=== PATIENT | female | born 1970 | race Caucasian/White ===

== ENCOUNTER 2017-02-13 10:44 | Emergency (ER) | payer OTHER ==
--- NOTE | 2017-02-13 12:24 | UC ---
General HPI - HPI Summary HPI Summary: The patient comes in today for: 1. Diarrhea, worsening breathing, sinus pressure: Onset: Last week. Palliative/provocative: Laying down leads to coughing. Quality: Pressure Region: Sinuses Severity:810 Time: Constant. Associated symptoms: COPD/ASthma: present, but 50% worse, with her having shortness of breath with exertion she never had problems with before. Diarrhea: 5 days. Stools: 10-12 times a day. No blood mucous or pus. Some of the stools are "just a little bit." Urination is "good" with a light yellow. Vomiting: None for the last 3 days. Fevers: None today, but before she did. Previous treatment: She saw her regular provider and given Augmentin for bronchitis with Robitussin with Codeine. Her diarrhea started a day later. It has been about the same since. Rhinitis: None. Cough production: green. * - History of Current Complaint Chief Complaint: UCGeneralIllness Stated Complaint: NAUSEA,V&D Time Seen by Provider: 02/13/17 12:17 Hx Obtained From: Patient - Allergy/Home Medications Allergies/Adverse Reactions: Allergies Allergy/AdvReac Type Severity Reaction Status Date / Time Cephalexin Allergy Mild Hives Verified 02/13/17 11:44 Ciprofloxacin Allergy Mild Hives Verified 02/13/17 11:44 Hydrocodone [From [place]] Allergy Vomiting Verified 02/13/17 11:44 Metronidazole [From Flagyl] Allergy Vomiting Verified 02/13/17 11:44 bandaids Allergy Rash Uncoded 02/13/17 11:44 tape Allergy Rash Uncoded 02/13/17 11:44 Home Medications: Home Medications Amoxicillin/Clavulanate TAB* [Augmentin TAB 875*] 1 tab PO BID 02/13/17 [ History Confirmed 02/13/17] Carisoprodol TAB* [Soma TAB*] 350 mg PO BID PRN MDD TWO TABS 02/13/17 [History Confirmed 02/13/17] Melatonin 1 tab PO BEDTIME 02/13/17 [History Confirmed 02/13/17] PMH/Surg Hx/FS Hx/Imm Hx Previously Healthy: Yes - Muscle pain (gabapentin, Soma), Endocrine History Of: Reports: Thyroid Disease - had biopsy r/t lump--removed-- benign. Denies: Diabetes, Hyperthyroidism, Hypothyroidism, Dyslipidemia Cardiovascular History Of: Denies: Cardiac Disorders, Hypertension, Pacemaker/ICD, Myocardial Infarction , Congestive Heart Failure, Atrial Fibrillation, Deep Vein Thrombosis, Bleeding Disorders Respiratory History Of: Reports: COPD, Asthma Denies: Bronchitis, Pneumonia, Pulmonary Embolism GI/ History Of: Reports: Gastroesophageal Reflux, Diverticulitis - HX OF FREQUENT DIVERTICULITIS--had partial colectomy. Denies: Ulcer, Gastrointestinal Bleed, Gall Bladder Disease, Kidney Stones, Renal Disease, Urosepsis Neurological History Of: Denies: TIA, CVA, Dementia, Seizures, Migraine Psychological History Of: Reports: Anxiety Denies: Depression, Bipolar Disorder, Schizophrenia, Post Traumatic Stress Disorder Cancer History Of: Denies: Lung Cancer, Colorectal Cancer, Breast Cancer, Prostate Cancer, Cervical Cancer Other History Of: Negative For: HIV, Hepatitis B, Hepatitis C, Anticoagulant Therapy - Surgical History Surgical History: Yes Surgery Procedure, Year, and Place: hysterectomy 1993. torsotunnel 2005. tay 2004. thyroid biopsy 2004 - Family History Known Family History: Positive: Cardiac Disease, Hypertension Negative: Blood Disorder - Social History Occupation: Unemployed Alcohol Use: Rare Alcohol Amount: Friday nights 6 pack/beer Substance Use Type: None Smoking Status (MU): Light Every Day Tobacco Smoker Type: Cigarettes Amount Used/How Often: 1/2 PPD Length of Time of Smoking/Using Tobacco: 30 Have You Smoked in the Last Year: Yes When Did the Patient Quit Smoking/Using Tobacco: 1 month Household Exposure Type: Cigarettes - Immunization History Most Recent Influenza Vaccination: 07/2016 Most Recent Tetanus Shot: 2014 Review of Systems Constitutional: Negative Skin: Negative Eyes: Negative ENT: Negative Respiratory: Cough Gastrointestinal: Negative, Diarrhea Genitourinary: Negative All Other Systems Reviewed And Are Negative: Yes Physical Exam Triage Information Reviewed: Yes Appearance: Well-Appearing, No Pain Distress, Well-Nourished Vital Signs: Initial Vital Signs Temp 97.1 F 02/13/17 11:37 Pulse 86 02/13/17 11:37 Resp 20 02/13/17 11:37 BP 115/95 02/13/17 11:37 Pulse Ox 97 02/13/17 11:37 Vital Signs Reviewed: Yes Eyes: Positive: Conjunctiva Clear. Negative: Discharge ENT: Positive: Hearing grossly normal. Negative: Pharyngeal erythema, Nasal congestion, Nasal drainage, TM bulging, TM dull, TM red, Tonsillar swelling, Tonsillar exudate Dental: Negative: Gross Decay/Caries @, Dental Fracture @ Neck: Positive: Supple, Nontender, No Lymphadenopathy. Negative: Nuchal Rigidity Respiratory: Positive: No respiratory distress, No accessory muscle use, Rhonchi , Wheezing Cardiovascular: Positive: RRR, No Murmur Abdomen Description: Positive: Nontender, No Organomegaly, Soft. Negative: Distended, Guarding, Peritoneal Signs, Pulsatile Mass Musculoskeletal: Positive: Strength Intact, ROM Intact, No Edema Neurological: Negative: Alert, Muscle Tone Normal Psychological: Negative: Age Appropriate Behavior, Consolable Skin: Negative: rashes, breakdown Diagnostics - Radiology No standard instances Xray Interpretation: No Acute Changes Radiology Interpretation Completed By: Radiologist Re-Evaluation - Re-Evaluation First Eval Change: Improved - The Ander helped her a lot by her report. Lungs are sounding clearer. Course/Dx - Differential Dx - Multi-Symptom Provider Diagnoses: Diarrhea (c diff vs antibiotic assoc). Bronchospasm/COPD/ Asthma Discharge - Discharge Plan Condition: Stable Disposition: HOME Patient Education Materials: COPD (Chronic Obstructive Pulmonary Disease) (ED) , Acute Diarrhea (ED) Referrals: Bhaskar Ryan MD [Primary Care Provider] - 1 Week (Please see your primary care provider in a week to see how well you are doing. If you get worse, please be seen sooner in the ER or through us.)
[2017-02-13] MEDS ORDERED: Albuterol/Ipratropium NEB.SOL* Albuterol 2.5 MG/Ipratropium 0.5 MG 3 ML INH ONE (12:37)
--- NOTE | 2017-02-13 13:06 | RAD ---
INDICATION: Cough and dyspnea. COMPARISON: Comparison is made with a prior chest x-ray study from June 02, 2013. TECHNIQUE: Dual-energy PA and lateral views of the chest were obtained. FINDINGS: The heart is within normal limits in size. Mediastinal and hilar contours appear within normal limits. The lungs are clear. No pleural effusion is present. IMPRESSION: NO EVIDENCE FOR ACTIVE CARDIOPULMONARY DISEASE.
[2017-02-13 13:28] VITALS: BP 120/80
== END 2017-02-13 14:10 | disposition home or self-care (01) ==
LOC: UCEAST 10:44
DX: R19.7 Diarrhea, unspecified (principal); J44.9 Chronic obstructive pulmonary disease, unspecified; J98.01 Acute bronchospasm; F17.210 Nicotine dependence, cigarettes, uncomplicated
CPT/HCPCS: 71020; 99213; A9270-GY; G0463

== ENCOUNTER 2017-04-29 07:44 | Emergency (ER) | payer OTHER ==
[2017-04-29 07:52] VITALS: BP 126/81
--- NOTE | 2017-04-29 09:03 | RAD ---
Indication: Left foot pain. 3 views of left foot demonstrates no fracture. No other bone or joint abnormality is identified. IMPRESSION: No fracture of left foot is noted.
--- NOTE | 2017-04-29 09:06 | RAD ---
Indication: Left ankle pain and injury. 3 views of left ankle demonstrates no fracture. Ankle mortise is intact. IMPRESSION: No fracture of the left ankle is identified.
--- NOTE | 2017-04-29 09:07 | RAD ---
Indication: Left leg pain. 2 views of the lower leg demonstrates no fracture. Fibula and tibia appear intact. IMPRESSION: No fracture of the tibia or fibula is present.
--- NOTE | 2017-04-29 14:55 | UC ---
Torin Chapa Aidan, scribed for Carla York MD on 04/29/17 at 0833 . Upper Extremity HPI - HPI Summary HPI Summary: 47 y/o female presents to the Urgent Care with a complaint of acute, constant, severe (reported 08/19) left foot pain at the top of the left foot that began suddenly after she fell down 4 stairs yesterday. Associated symptoms include left foot swelling and difficulty sleeping last night secondary to her pain. Pt denies any LOC, head pain, neck pain, or back pain. Her pain occurred at the time of the incident and has progressively worsened since onset. Upon questioning, she does complaint of "my whole foot is tingling." - History of Current Complaint Chief Complaint: UCLowerExtremity Stated Complaint: FOOT INJURY Time Seen by Provider: 04/29/17 08:09 Hx Obtained From: Patient Hx Last Menstrual Period: unknown ?: No Onset/Duration: Sudden Onset, Lasting Hours - since yesterday, Still Present Severity Initially: Severe Severity Currently: Severe Pain Intensity: 10 Pain Scale Used: 0-10 Numeric Location Of Pain: Is Discrete @ - left foot Character: Aching Aggravating Factor(s): Nothing - unknown Alleviating Factor(s): Other: - unknown Associated Signs And Symptoms: Positive: Swelling - of the left foot, Numbness/ Tingling - tingling in the left foot - Risk Factors DVT Risk Factors: Smoking Compartment Syndrome Risk Factors: Pain - Allergies/Home Medications Allergies/Adverse Reactions: Allergies Allergy/AdvReac Type Severity Reaction Status Date / Time Cephalexin Allergy Mild Hives Verified 02/13/17 11:44 Ciprofloxacin Allergy Mild Hives Verified 02/13/17 11:44 Hydrocodone [From [place]] Allergy Vomiting Verified 02/13/17 11:44 Metronidazole [From Flagyl] Allergy Vomiting Verified 02/13/17 11:44 bandaids Allergy Rash Uncoded 02/13/17 11:44 tape Allergy Rash Uncoded 02/13/17 11:44 PMH/Surg Hx/FS Hx/Imm Hx Previously Healthy: Yes Other History Of: Negative For: HIV, Hepatitis B, Hepatitis C, Anticoagulant Therapy - Surgical History Surgical History: Yes Surgery Procedure, Year, and Place: hysterectomy 1993. torsotunnel 2005. tay 2004. thyroid biopsy 2004 - Family History Known Family History: Positive: Cardiac Disease, Hypertension Negative: Blood Disorder - Social History Occupation: Unemployed Lives: With Family Alcohol Use: Rare Alcohol Amount: Friday nights 6 pack/beer Substance Use Type: None Smoking Status (MU): Light Every Day Tobacco Smoker Type: Cigarettes Amount Used/How Often: 1/2 PPD Length of Time of Smoking/Using Tobacco: 30 Have You Smoked in the Last Year: Yes When Did the Patient Quit Smoking/Using Tobacco: 1 month Household Exposure Type: Cigarettes - Immunization History Most Recent Influenza Vaccination: 07/2016 Most Recent Tetanus Shot: 2014 Review of Systems Constitutional: Negative Skin: Negative Eyes: Negative ENT: Negative Respiratory: Negative Cardiovascular: Negative Gastrointestinal: Negative Genitourinary: Negative Motor: Negative Neurovascular: Negative Musculoskeletal: Arthralgia - left foot pain at the top of the left foot with associated left foot swelling, Edema - left foot swelling Neurological: Other - tingling in the left foot Psychological: Negative All Other Systems Reviewed And Are Negative: Yes Physical Exam Triage Information Reviewed: Yes Appearance: Well-Nourished Vital Signs: Initial Vital Signs Temp 97.6 F 04/29/17 07:47 Pulse 88 04/29/17 07:47 Resp 18 04/29/17 07:47 BP 126/81 04/29/17 07:47 Pulse Ox 99 04/29/17 07:47 Vital Signs Reviewed: Yes Eye Exam: Normal ENT Exam: Normal ENT: Positive: Normal ENT inspection Neck exam: Normal Neck: Positive: No Lymphadenopathy Respiratory Exam: Normal, Other - no dyspnea, no tachypnea, normal respiratory rate Respiratory: Positive: Chest non-tender, Lungs clear, Normal breath sounds, No respiratory distress, No accessory muscle use Cardiovascular Exam: Normal, Other - heart rate regular, good general skin color , good capillary refill Cardiovascular: Positive: RRR, No Murmur, Pulses Normal, Brisk Capillary Refill Abdominal Exam: Normal Abdomen Description: Positive: Nontender, No Organomegaly, Soft Bowel Sounds: Positive: Present Musculoskeletal Exam: Normal Musculoskeletal: Positive: Strength Intact, Other: - Discomfort extends to proximal tib fib area, anterior ankle and foot, sensation to light touch present , ecchymosis and contusion, proximal anterior tib, ecchymosis and contusion, distal anterior tib extending to ankle and foot, diffuse tenderness anterior ankle and anterior foot, proximal lateral tib fib, DPPT 1+, cap refill less than 2 seconds, ecchymosis proximal mid-calf, she is able to straighten her arm out, no numbness or tingling Neurological Exam: Normal, Other - nonfocal, grossly intact Psychological Exam: Normal, Other - Normal: conversing easily and appropriately Skin Exam: Normal, Other - no visible or reported rash Skin: Positive: Other - superficial abrasion anterior ankle, bruise to distal ulnar area Diagnostics - Radiology FOOT X-RAY Xray Interpretation: No Acute Changes - IMPRESSION: NO FRACTURE OF LEFT FOOT IS NOTED Radiology Interpretation Completed By: Radiologist ANKLE X-RAY Xray Interpretation: No Acute Changes - IMPRESSIION: No fracture of the left ankle is identified. Radiology Interpretation Completed By: Radiologist LOWER EXREMITY X-RAY Xray Interpretation: No Acute Changes - IMPRESSION: NO FRACTURE OF THE TIBIA OR FIBULA IS PRESENT Radiology Interpretation Completed By: Radiologist Upper Extremity Course/Dx - Course Course Of Treatment: No new problems in CCC. Reviewed xray reports with pt, and reviewed need for f/u. CAM boot administered. Crutches given by RN. R forearm mild eccymosis, moves elbow / wrist easily. No p/d/w. Questions answered as posed. - Differential Dx/Diagnosis Provider Diagnoses: Acute left ankle sprain. Multiple lower leg contusions s/p trauma Discharge - Discharge Plan Condition: Stable Disposition: HOME Patient Education Materials: Ankle Sprain (ED), Contusion in Adults (ED), Musculoskeletal Pain (ED) Referrals: Bhaskar Ryan MD [Primary Care Provider] - Additional Instructions: Follow up with your primary care physician, Dr. Ryan, in about 2 weeks. Seek medical attention sooner for worse or new problems in the meantime. Crutches, cam boot as needed for comfort. Ibuprofen (pre script previous from your physician) - continue at least 2x / day for the next three days to help with swelling. The documentation as recorded by the Torin woo Aidan accurately reflects the service I personally performed and the decisions made by me, Carla York MD.
== END 2017-04-29 09:40 | disposition home or self-care (01) ==
LOC: UCEAST 07:44
DX: S93.402A Sprain of unspecified ligament of left ankle, initial encounter (principal); W10.9XXA Fall (on) (from) unspecified stairs and steps, initial encounter; Y93.9 Activity, unspecified; Y92.9 Unspecified place or not applicable; Y99.9 Unspecified external cause status; Z72.0 Tobacco use
CPT/HCPCS: 99213; G0463

== ENCOUNTER 2018-02-04 14:56 | Emergency (ER) | payer OTHER ==
--- NOTE | 2018-02-04 15:52 | UC ---
Throat Pain/Nasal [place] HPI - HPI Summary HPI Summary: [facility] days of worsening cough sore throat bilateral air pain nasal congestion this patient has a history of COPD and is continuing to smoke patient denies fevers chills or illness exposures - History of Current Complaint Chief Complaint: UCRespiratory Stated Complaint: SORE THROAT,HEADACHE Time Seen by Provider: 02/04/18 15:43 Hx Obtained From: Patient Hx Last Menstrual Period: unknown ?: No Onset/Duration: Sudden Onset, Lasting Days - 2, Still Present Severity: Moderate Pain Intensity: 8 Pain Scale Used: 0-10 Numeric Cough: Nonproductive Associated Signs & Symptoms: Positive: Wheezing, Sinus Discomfort, Nasal Discharge Related History: Smoking - Allergies/Home Medications Allergies/Adverse Reactions: Allergies Allergy/AdvReac Type Severity Reaction Status Date / Time acetaminophen [From [place]] Allergy Vomiting Verified 02/04/18 15:17 cephalexin Allergy Hives Verified 02/04/18 15:17 ciprofloxacin Allergy Hives Verified 02/04/18 15:17 hydrocodone [From [place]] Allergy Vomiting Verified 02/04/18 15:17 metronidazole [From Flagyl] Allergy Vomiting Verified 02/04/18 15:17 bandaids Allergy Rash Uncoded 02/04/18 15:17 tape Allergy Rash Uncoded 02/04/18 15:17 PMH/Surg Hx/FS Hx/Imm Hx Previously Healthy: No Respiratory History: COPD, Asthma GI/ History: Gastroesophageal Reflux Psychological History: Depression Other History Of: Negative For: HIV, Hepatitis B, Hepatitis C, Anticoagulant Therapy - Surgical History Surgical History: Yes Surgery Procedure, Year, and Place: hysterectomy 1993. torsotunnel 2005. tay 2004. thyroid biopsy 2004. OVARIES REMOVED 2015. INTESTINES REMOVED 2016 - Family History Known Family History: Positive: Cardiac Disease, Hypertension Negative: Blood Disorder - Social History Occupation: Unemployed Lives: With Family Alcohol Use: Occasionally Alcohol Amount: Friday nights 6 pack/beer Substance Use Type: None Smoking Status (MU): Light Every Day Tobacco Smoker Type: Cigarettes Amount Used/How Often: 1/2 PPD Length of Time of Smoking/Using Tobacco: 30 Have You Smoked in the Last Year: Yes Household Exposure Type: Cigarettes Cessation Counseling: Counseled 3+Min - 10 Min - Immunization History Most Recent Influenza Vaccination: 07/2016 Most Recent Tetanus Shot: 2014 Review of Systems Constitutional: Fatigue Skin: Negative Eyes: Negative ENT: Ear Ache, Nasal Discharge, Sinus Congestion Respiratory: Shortness Of Breath, Cough Cardiovascular: Negative Gastrointestinal: Negative Genitourinary: Negative Motor: Negative Neurovascular: Negative Musculoskeletal: Negative Neurological: Negative Psychological: Negative Is Patient Immunocompromised?: No All Other Systems Reviewed And Are Negative: Yes Physical Exam Triage Information Reviewed: Yes Appearance: Well-Nourished, Ill-Appearing, Pain Distress Vital Signs: Initial Vital Signs Temp 95.9 F 02/04/18 15:11 Pulse 134 02/04/18 15:11 Resp 20 02/04/18 15:11 BP 128/87 02/04/18 15:11 Pulse Ox 99 02/04/18 15:11 Vital Signs Reviewed: Yes Eye Exam: Normal Eyes: Positive: Conjunctiva Clear ENT Exam: Normal ENT: Positive: Normal ENT inspection, Hearing grossly normal, Pharynx normal, Nasal congestion, TMs normal, Uvula midline. Negative: Nasal drainage, Trismus , Muffled voice, Hoarse voice, Dental tenderness, Sinus tenderness Dental Exam: Normal Neck exam: Normal Neck: Positive: Supple, Nontender, No Lymphadenopathy Respiratory Exam: Normal Respiratory: Positive: Chest non-tender, No accessory muscle use, Respiratory distress - Mild, Wheezing. Negative: No respiratory distress Cardiovascular Exam: Normal Cardiovascular: Positive: No Murmur, Pulses Normal, Brisk Capillary Refill, Tachycardia Musculoskeletal Exam: Normal Musculoskeletal: Positive: Strength Intact, ROM Intact, No Edema Neurological Exam: Normal Neurological: Positive: Alert, Muscle Tone Normal Psychological Exam: Normal Skin Exam: Normal Diagnostics - Radiology No standard instances Xray Interpretation: No Acute Changes Radiology Interpretation Completed By: ED Physician, Radiologist - EKG Cardiac Rate: Tachycardia Cardiac Rhythm: Sinus: Normal Ectopy: None ST Segment: Normal Re-Evaluation - Re-Evaluation First Eval Change: Improved - Patient feeling much better after nebulizer heart rate is down respiratory rate is much easier unlabored feeling like she can go home Throat Pain/Nasal Course/Dx - Course Assessment/Plan: Patient provided education on nicotine cessation encouraged to increase fluids medicated with albuterol Zithromax and a short course of prednisone will follow up with primary care doctor - Differential Dx/Diagnosis Provider Diagnoses: Acute bronchitis with exacerbation of bronchospasm, nicotine dependent Discharge - Sign-Out/Discharge Documenting (check all that apply): Discharge - Discharge Plan Condition: Stable Disposition: HOME Prescriptions: Albuterol HFA INHALER* [Ventolin HFA Inhaler*] 2 puff INH Q4H PRN #1 mdi PRN Reason: cough/wheeze Azithromycin TAB* [Zithromax TAB (Z-RYAN) 250 mg #6 tabs] 2 tab PO .TODAY, THEN 1 DAILY #1 ryan predniSONE TAB* [Deltasone TAB*] 20 mg PO DAILY #12 tab Patient Education Materials: How to Stop Smoking (ED), Acute Bronchitis (ED), Bronchospasm (ED) Referrals: Bhaskar Ryan MD [Primary Care Provider] - 3 Days - Billing Disposition and Condition Condition: STABLE Disposition: HOME
[2018-02-04] MEDS ORDERED: Albuterol/Ipratropium NEB.SOL* Albuterol 2.5 MG/Ipratropium 0.5 MG 3 ML INH ONE (15:53)
--- NOTE | 2018-02-04 16:53 | RAD ---
INDICATION: Cough, congestion and tachycardia COMPARISON: Chest x-ray dated February 13, 2017 TECHNIQUE: PA and lateral views of the chest were obtained. FINDINGS: The heart and mediastinum are normal in size and contour. The lungs are grossly clear. There is no evidence of large pleural effusion. Visualized bones are normal for the patient's age. There is no radiographic evidence of free air beneath the diaphragm IMPRESSION: No radiographic evidence of acute cardiopulmonary disease.
[2018-02-04 17:26] VITALS: BP 109/83
== END 2018-02-04 17:30 | disposition home or self-care (01) ==
LOC: UCEAST 14:56
DX: J20.9 Acute bronchitis, unspecified (principal); R00.0 Tachycardia, unspecified; K21.9 Gastro-esophageal reflux disease without esophagitis; F32.9 Major depressive disorder, single episode, unspecified; Z88.6 Allergy status to analgesic agent; Z88.1 Allergy status to other antibiotic agents; Z88.5 Allergy status to narcotic agent; Z91.048 Other nonmedicinal substance allergy status; Z71.6 Tobacco abuse counseling; F17.210 Nicotine dependence, cigarettes, uncomplicated
CPT/HCPCS: 71046; 81003; 87502; 87651; 93005; 99212; A9270-GY; G0463